=== PATIENT | male | born 1970 | race Caucasian/White ===

== ENCOUNTER 2016-09-18 13:29 | Emergency (ER) | payer OTHER ==
--- NOTE | 2016-09-18 14:16 | ED CLINICAL REPORT ---
Clinical Report - Physicians/Mid Levels [facility] [address] [place] [place] [address] 09/18/2016 13:34 Patient: MELINDA BRYANT SR Time Seen: 13:50; initial patient contact, initial documentation, patient care assumed. Arrived- By private vehicle. Historian- patient and spouse. HISTORY OF PRESENT ILLNESS Chief Complaint: HEADACHE. Is still present. This started about 1 weeks ago. It was abrupt in onset and has been constant. It is described as similar to previous headaches, "pain", throbbing and sharp. Located in the region of the right eye and left eye and facial region and has had neck pain. At its maximum, severity described as severe. When seen in the E.D., severity described as severe. Modifying factors: worsened by bright light; relieved by nothing. The patient has had photophobia, nausea and vomiting. The vomiting has occurred only once. No preceding symptoms, blurred vision, numbness or weakness. No recent travel. Similar symptoms previously: Chronically, as bad. Recent medical care: Not recently seen/assessed. REVIEW OF SYSTEMS No fever, sinus pressure, ear pain, sore throat or head injury. No chest pain, difficulty breathing, cough or abdominal pain. All systems otherwise negative, except as recorded above. PAST HISTORY See nurses notes. PROBLEMS: Headache. --13:53 Oz Zhang R.N. ADDITIONAL SURGERIES: Cholecystectomy. --13:53 Oz Zhang R.N. SOCIAL HISTORY Never smoker. No alcohol use or drug use. No recent travel. Is a local resident. He lives with spouse. FAMILY HISTORY Negative. ADDITIONAL NOTES The nursing notes have been reviewed with agreement regarding the chief complaint, HPI, ROS, PMH and patient medications and allergies. PHYSICAL EXAM Vital Signs: 09/18/2016 13:50 BP: 120/65. HR: 84. RR: 20. O2 saturation: 96%. Temp: 97.8 F. Pain level now: 5/10. Have been reviewed as normal and appear to be correct. Appearance: Alert. No acute distress. Eyes: Pupils equal, round and reactive to light. Eyes normal inspection. ENT: Ears normal. Nose normal. Pharynx normal. Neck: Normal inspection. Neck supple. CVS: Normal heart rate and rhythm. Heart sounds normal. Pulses normal. Respiratory: No respiratory distress. Breath sounds normal. Abdomen: Soft and nontender. No organomegaly. Severely obese. Back: Normal inspection. Skin: Skin warm and dry. Normal skin color. No rash. Normal skin turgor. Extremities: Extremities exhibit normal ROM. No lower extremity edema. Neuro: Oriented X 3. Alert. Mood/affect normal. Speech normal. Cranial nerves normal (as tested). No cerebellar findings. No motor deficit. No sensory deficit. PROGRESS AND PROCEDURES Patient and spouse counseled in person regarding the patient's stable condition and diagnosis. Differential Diagnosis: I considered migraine, cluster headache, ischemic stroke, subarachnoid hemorrhage, intracranial bleed, vascular malformation, cerebral aneurysm, vascular dissection, vasculitis, temporal arteritis, encephalitis, brain abscess, sinusitis, influenza, viral syndrome, carbon monoxide exposure, analgesic abuse and hypoglycemia as a possible cause of headache in this patient. This is a partial list of diagnoses considered. Above considerations are based on history and physical exam. Differential diagnosis was discussed with patient and patient's spouse. Disposition: Discharged home in good and improved condition (14:16). Condition: good and stable. CLINICAL IMPRESSION Acute, poorly controlled periodic headache syndrome. INSTRUCTIONS Warnings: GENERAL WARNINGS: Return or contact your physician immediately if your condition worsens or changes unexpectedly, if not improving as expected, or if other problems arise. SPECIFICALLY, return if you develop fever, vomiting, numbness, weakness, difficulty thinking, visual disturbances, fainting or extreme fatigue. Prescription Medications: Zofran 4 mg: Take 1 orally every six hours as needed for nausea/vomiting. Dispense ten (10). No refills. Substitution is permissible. Fioricet: Take 1-2 orally every 4 hours as needed for headache. Dispense twenty (20). No refills. Substitution is permissible. Follow-up: Follow up with your doctor in about three days as needed. Call for an appointment. Summary of care provided to patient. Understanding of the discharge instructions verbalized by patient. (Electronically signed by Afsaneh Ac A.R.N.P. 09/18/2016 17:46)
--- NOTE | 2016-09-18 14:16 | ED NURSING NOTES ---
Clinical Report - Nurses [facility] [address] [place] [address] [place] [address] 09/18/2016 13:34 Patient: MELINDA BRYANT SR TRIAGE Triage time 13:50 Sep 18 2016. Acuity: LEVEL 4. Chief Complaint: HEADACHE. Alert. No acute distress. MIKAYLA COMA SCORE: Mikayla Coma Scale: 15- eyes open spontaneously (4); best verbal response- oriented x 4 (5); best motor response- obeys commands (6). --13:59 Oz Zhang R.N. 13:50 09/18/16. BP: 120/65. HR: 84. RR: 20. O2 saturation: 96% on room air. Temp: 97.8 F. Pain level now: 07/14. --13:59 Oz Zhang R.N. Weight: 163.2 kg stated. Height/Length: 73 inches Per Patient. BMI: 47.5. --13:50 Oz Zhang R.N. Medications Indomethacin 25 mg PO PRN. --13:52 Oz Zahng R.N. Aleve Oral. --13:53 Oz Zhang R.N. Allergies No Known Drug Allergy. --13:53 Oz Zhang R.N. History Arrived by private vehicle. Historian: patient. Accompanied by family. Primary physician (Camila Saleem @ [place]). This started 1 week ago. ( Pt has had a headache for 1 week; it has gotten progressively worse. Pt has been diagnosed with activity induced headaches, usually his headaches improve when he takes the Indomethacin appropriately but this REILLY has not responded to the medication. He presents today in acute discomfort, pain reported behind his eyes.). He has had nausea, vomiting and weakness. No fever. Treatment COGNOS ADMINISTRATOR: (Indomethacin). PAST MEDICAL HX: Headaches. Head injury: (as a child). Immunizations: up-to-date. SOCIAL HX: Never smoker. Occasional alcohol use. History of drug use: marijuana. No recent travel. No infectious disease exposure. ABUSE ASSESSMENT: No report of abuse. SELF HARM ASSESSMENT: A self harm assessment was performed. The patient answered "no" to the question "Do you have thoughts of harming or killing yourself?". FALL RISK ASSESSMENT: Fall risk assessment completed. No fall risk identified. NUTRITIONAL RISK ASSESSMENT: The nutritional risk assessment revealed no deficiencies. FUNCTIONAL ASSESSMENT: Functional assessment: no impairments noted. LEARNING NEEDS ASSESSMENT: The learning needs assessment revealed no barriers. SKIN INTEGRITY ASSESSMENT: Skin integrity risk assessment completed. No skin integrity risk identified. --13:59 Oz Zhang R.N. PROBLEMS: Headache. --13:53 Oz Zhang R.N. ADDITIONAL SURGERIES: Cholecystectomy. --13:53 Oz Zhang R.N. Interventions ID band on patient. To treatment room. --13:59 Oz Zhang R.N. PHYSICAL ASSESSMENT Ambulatory to room. GENERAL / NEURO / PSYCH: Alert. Oriented X 4. Appears in no acute distress. Speech within normal limits. HEENT: No facial asymmetry noted. Pupils equal, round and reactive to light. RESPIRATORY: Respirations not labored. CVS: Capillary refill less than 2 seconds. GI / : Abdomen soft and nontender. ( Pt reports bloating, explosive diarrhea). SKIN: Skin is warm and dry. --14:01 Oz Zhang R.N. HEENT: ( Pt reporting neck pain to the L side.). --14:02 Oz Zhang R.N. NURSING PROGRESS NOTES The plan of care for this patient has been created. Monitoring of patient in place. Head of bed elevated. Reassurance given. Lights dimmed. Two patient identifiers checked. Call light placed in reach. Side rails up x 2. Bed placed in lowest position. Brakes of chair on. Patient ready for evaluation- notification provided. --14:02 Oz Zhang R.N. 14:22 09/18/2016 Reglan (Metoclopramide HCl) IM 10 mg given. Given in the right ventral gluteus. Allergies verified and confirmed 5 rights. --14:27 Oz Zhang R.N. 14:27 09/18/2016 Toradol (Ketorolac Tromethamine) IM 60 mg given. Given in the left ventral gluteus. Allergies verified and confirmed 5 rights. --14:27 Oz Zhang R.N. 14:30 09/18/2016 Benadryl (DiphenhydrAMINE HCl) IM 50 mg given. Given in the right deltoid. Allergies verified, confirmed 5 rights and sedative warning given to the patient and patient's family. --14:30 Oz Zhang R.N. ( Pt reports pain is the same, nausea is present, medicated Pt according to orders, Pt tolerated well, family at bedside.). --14:34 Oz Zhang R.N. 14:51 09/18/2016 Reglan IM Response: no adverse reaction. --14:51 Oz Zhang R.N. 14:51 09/18/2016 Toradol IM Response: no adverse reaction. --14:51 Oz Zhang R.N. 14:51 09/18/2016 Benadryl IM Response: no adverse reaction. --14:51 Oz Zhang R.N. DISPOSITION / DISCHARGE 14:42 09/18/16. BP: 110/54. HR: 76. RR: 16. O2 saturation: 96% on room air. Temp: deferred. Pain level now: 07/14. --14:42 Oz Zhang R.N. Departure time: 14:Sep 18 2016. Condition at departure: improved and stable. The goals identified in the patient's plan of care were met. No learning barriers present. Discharge instructions provided and reviewed with the patient and spouse. Reviewed warnings (Pt instructed not to drive while taking Fioricet). Reviewed medication(s) side effects, precautions, dosing and course information. Prescription(s) given to the business services sales representative (Rx for Fioricet and Zofran). Reviewed referral to a primary care physician for followup. Patient and spouse verbalized understanding. Written instructions provided in [place]ralt[place]. The patient was discharged home and accompanied by spouse. He left the Emergency Department ambulatory and via private vehicle. Spouse driving. --14:51 Oz Zhang R.N. Locked/Released at 09/18/2016 17:03 by Oz Zhang R.N.
--- NOTE | 2016-09-18 14:16 | ED NURSING NOTES ---
Clinical Report - Nurses [facility] [place] [address] 09/18/2016 13:34 Patient: MELINDA BRYANT SR TRIAGE Triage time 13:50 Sep 18 2016. Acuity: LEVEL 4. Chief Complaint: HEADACHE. Alert. No acute distress. MIKAYLA COMA SCORE: Mikayla Coma Scale: 15- eyes open spontaneously (4); best verbal response- oriented x 4 (5); best motor response- obeys commands (6). --13:59 Oz Zhang R.N. 13:50 09/18/16. BP: 120/65. HR: 84. RR: 20. O2 saturation: 96% on room air. Temp: 97.8 F. Pain level now: 07/14. --13:59 Oz Zhang R.N. Weight: 163.2 kg stated. Height/Length: 73 inches Per Patient. BMI: 47.5. --13:50 Oz Zhang R.N. Medications Indomethacin 25 mg PO PRN. --13:52 Oz Zhang R.N. Aleve Oral. --13:53 Oz Zhang R.N. Allergies No Known Drug Allergy. --13:53 Oz Zhang R.N. History Arrived by private vehicle. Historian: patient. Accompanied by family. Primary physician (Camila Saleem @ [place]). This started 1 week ago. ( Pt has had a headache for 1 week; it has gotten progressively worse. Pt has been diagnosed with activity induced headaches, usually his headaches improve when he takes the Indomethacin appropriately but this REILLY has not responded to the medication. He presents today in acute discomfort, pain reported behind his eyes.). He has had nausea, vomiting and weakness. No fever. Treatment UNCRATER: (Indomethacin). PAST MEDICAL HX: Headaches. Head injury: (as a child). Immunizations: up-to-date. SOCIAL HX: Never smoker. Occasional alcohol use. History of drug use: marijuana. No recent travel. No infectious disease exposure. ABUSE ASSESSMENT: No report of abuse. SELF HARM ASSESSMENT: A self harm assessment was performed. The patient answered "no" to the question "Do you have thoughts of harming or killing yourself?". FALL RISK ASSESSMENT: Fall risk assessment completed. No fall risk identified. NUTRITIONAL RISK ASSESSMENT: The nutritional risk assessment revealed no deficiencies. FUNCTIONAL ASSESSMENT: Functional assessment: no impairments noted. LEARNING NEEDS ASSESSMENT: The learning needs assessment revealed no barriers. SKIN INTEGRITY ASSESSMENT: Skin integrity risk assessment completed. No skin integrity risk identified. --13:59 Oz Zhang R.N. PROBLEMS: Headache. --13:53 Oz Zhang R.N. ADDITIONAL SURGERIES: Cholecystectomy. --13:53 Oz Zhang R.N. Interventions ID band on patient. To treatment room. --13:59 Oz Zhang R.N. PHYSICAL ASSESSMENT Ambulatory to room. GENERAL / NEURO / PSYCH: Alert. Oriented X 4. Appears in no acute distress. Speech within normal limits. HEENT: No facial asymmetry noted. Pupils equal, round and reactive to light. RESPIRATORY: Respirations not labored. CVS: Capillary refill less than 2 seconds. GI / : Abdomen soft and nontender. ( Pt reports bloating, explosive diarrhea). SKIN: Skin is warm and dry. --14:01 Oz Zhang R.N. HEENT: ( Pt reporting neck pain to the L side.). --14:02 Oz Zhang R.N. NURSING PROGRESS NOTES The plan of care for this patient has been created. Monitoring of patient in place. Head of bed elevated. Reassurance given. Lights dimmed. Two patient identifiers checked. Call light placed in reach. Side rails up x 2. Bed placed in lowest position. Brakes of chair on. Patient ready for evaluation- notification provided. --14:02 Oz Zhang R.N. 14:22 09/18/2016 Reglan (Metoclopramide HCl) IM 10 mg given. Given in the right ventral gluteus. Allergies verified and confirmed 5 rights. --14:27 Oz Zhang R.N. 14:27 09/18/2016 Toradol (Ketorolac Tromethamine) IM 60 mg given. Given in the left ventral gluteus. Allergies verified and confirmed 5 rights. --14:27 Oz Zhang R.N. 14:30 09/18/2016 Benadryl (DiphenhydrAMINE HCl) IM 50 mg given. Given in the right deltoid. Allergies verified, confirmed 5 rights and sedative warning given to the patient and patient's family. --14:30 Oz Zhang R.N. ( Pt reports pain is the same, nausea is present, medicated Pt according to orders, Pt tolerated well, family at bedside.). --14:34 Oz Zhang R.N. 14:51 09/18/2016 Reglan IM Response: no adverse reaction. --14:51 Oz Zhang R.N. 14:51 09/18/2016 Toradol IM Response: no adverse reaction. --14:51 Oz Zhang R.N. 14:51 09/18/2016 Benadryl IM Response: no adverse reaction. --14:51 Oz Zhang R.N. DISPOSITION / DISCHARGE 14:42 09/18/16. BP: 110/54. HR: 76. RR: 16. O2 saturation: 96% on room air. Temp: deferred. Pain level now: 07/14. --14:42 Oz Zhang R.N. Departure time: 14:Sep 18 2016. Condition at departure: improved and stable. The goals identified in the patient's plan of care were met. No learning barriers present. Discharge instructions provided and reviewed with the patient and spouse. Reviewed warnings (Pt instructed not to drive while taking Fioricet). Reviewed medication(s) side effects, precautions, dosing and course information. Prescription(s) given to the division field inspector (Rx for Fioricet and Zofran). Reviewed referral to a primary care physician for followup. Patient and spouse verbalized understanding. Written instructions provided in [employer]eless. The patient was discharged home and accompanied by spouse. He left the Emergency Department ambulatory and via private vehicle. Spouse driving. --14:51 Oz Zhang R.N. Locked/Released at 09/18/2016 17:03 by Oz Zhang R.N.
--- NOTE | 2016-09-18 14:16 | ED ORDER SUMMARY ---
..... Patient: MELINDA BRYANT SR OrderSheet [facility] VisitID: [id number] [address] [place] [address] 46y, M Registration Date/Time: 09/18/2016 ORDER SHEET Weight: 163.2 kg (stated) Allergies: No Known Drug Allergy GENERAL ORDERS: MEDICATION ORDERS: Toradol IM 60 mg (NOW) (14:16 09/18/2016 HBivens A.R.N.P.) (14:27 MCook R.N.) Benadryl IM 50 mg (NOW) (14:16 09/18/2016 HBivens A.R.N.P.) (14:30 MCook R.N.) - (Reglan 10mg im stat) (14:16 09/18/2016 HBivens A.R.N.P.) (14:27 MCook R.N.) IV FLUIDS: ORDER SHEET NOTES: [Electronically signed by Oz Zhang R.N. (17:03 09/18/2016)] [Electronically signed by Afsaneh AcR.N.PFili (17:46 09/18/2016)] [Electronically locked/signed by Oz Zhang R.N. (17:03 09/18/2016)]
--- NOTE | 2016-09-18 14:16 | ED ORDER SUMMARY ---
..... Patient: MELINDA BRYANT SR OrderSheet [facility] VisitID: [id number] [address] [place] [address] 46y, M Registration Date/Time: 09/18/2016 ORDER SHEET Weight: 163.2 kg (stated) Allergies: No Known Drug Allergy GENERAL ORDERS: MEDICATION ORDERS: Toradol IM 60 mg (NOW) (14:16 09/18/2016 HBivens A.R.N.P.) (14:27 MCook R.N.) Benadryl IM 50 mg (NOW) (14:16 09/18/2016 HBivens A.R.N.P.) (14:30 MCook R.N.) - (Reglan 10mg im stat) (14:16 09/18/2016 HBivens A.R.N.P.) (14:27 MCook R.N.) IV FLUIDS: ORDER SHEET NOTES: [Electronically signed by Oz Zhang R.N. (17:03 09/18/2016)] [Electronically signed by Afsaneh AcR.N.PFili (17:46 09/18/2016)] [Electronically locked/signed by Oz Zhang R.N. (17:03 09/18/2016)]
--- NOTE | 2016-09-18 17:46 | ED MAR SUMMARY ---
..... Medication Administration Record [facility] [address] [place] [address] Patient: MELINDA BRYANT Visit ID: [id number] 46y, M Weight: 163.2 kg Height/Length: 73 in BMI: 47.5 ALLERGIES: No Known Drug Allergy Given 14:22 09/18/2016 Oz Zhang R.N. Medication Administered: REGLAN [IM] (METOCLOPRAMIDE HCL), Dose: 10 mg IM. Medication Ordered: - (Reglan 10mg im stat). Given 14:09/18/2016 Oz Zhang R.N. Medication Administered: TORADOL [IM] (KETOROLAC TROMETHAMINE), Dose: 60 mg IM. Medication Ordered: Toradol IM 60 mg (NOW). Given 14:30 09/18/2016 Oz Zhang R.N. Medication Administered: BENADRYL [IM] (DIPHENHYDRAMINE HCL), Dose: 50 mg IM. Medication Ordered: Benadryl IM 50 mg (NOW).
--- NOTE | 2016-09-18 17:46 | ED MAR SUMMARY ---
..... Medication Administration Record [facility] [address] [place] [address] Patient: MELINDA BRYANT Visit ID: [id number] 46y, M Weight: 163.2 kg Height/Length: 73 in BMI: 47.5 ALLERGIES: No Known Drug Allergy Given 14:22 09/18/2016 Oz Zhang R.N. Medication Administered: REGLAN [IM] (METOCLOPRAMIDE HCL), Dose: 10 mg IM. Medication Ordered: - (Reglan 10mg im stat). Given 14:09/18/2016 Oz Zhang R.N. Medication Administered: TORADOL [IM] (KETOROLAC TROMETHAMINE), Dose: 60 mg IM. Medication Ordered: Toradol IM 60 mg (NOW). Given 14:30 09/18/2016 Oz Zhang R.N. Medication Administered: BENADRYL [IM] (DIPHENHYDRAMINE HCL), Dose: 50 mg IM. Medication Ordered: Benadryl IM 50 mg (NOW).
--- NOTE | 2016-09-18 17:46 | ED MED RECONCILIATION SUMMARY ---
Patient: MELINDA BRYANT SR Medication Reconciliation Report [facility] VisitID: [id number] [address] [place] [place] [address] 46y, M Registration Date/Time: 09/18/2016 Weight: 163.2 kg Height/Length: 73 in. BMI: 47.5 ALLERGIES: No Known Drug Allergy The patient's Home Medications are listed below: THE FOLLOWING MEDICATIONS NEED TO BE RECONCILED: Aleve Oral Indomethacin 25 mg PO PRN The source(s) of the original Home Medication information: Not obtained. The following Medications were given to the patient in the Emergency Department: Reglan [IM] IM 10 mg, administered: 09/18/2016 2:22:00 PM Toradol [IM] IM 60 mg, administered: 09/18/2016 2:27:00 PM Benadryl [IM] IM 50 mg, administered: 09/18/2016 2:30:00 PM The following Medications were prescribed to the patient: Zofran 4 mg: Take 1 orally every six hours as needed for nausea/vomiting. Dispense ten (10). No refills. Substitution is permissible. -- Afsaneh Ac, A.R.N.P. Fioricet: Take 1-2 orally every 4 hours as needed for headache. Dispense twenty (20). No refills. Substitution is permissible. -- Afsaneh Ac A.R.N.P.
--- NOTE | 2016-09-18 17:46 | ED DISCHARGE INSTRUCTIONS ---
Patient: MELINDA BRYANT SR General Instructions [facility] VisitID: [id number] [place] [address] 46y, M Registration Date/Time: 09/18/2016 Acute, poorly controlled periodic headache syndrome. INSTRUCTIONS Warnings: GENERAL WARNINGS: Return or contact your physician immediately if your condition worsens or changes unexpectedly, if not improving as expected, or if other problems arise. SPECIFICALLY, return if you develop fever, vomiting, numbness, weakness, difficulty thinking, visual disturbances, fainting or extreme fatigue. Prescription Medications: Zofran 4 mg: Take 1 orally every six hours as needed for nausea/vomiting. Dispense ten (10). No refills. Substitution is permissible. Fioricet: Take 1-2 orally every 4 hours as needed for headache. Dispense twenty (20). No refills. Substitution is permissible. Follow-up: Follow up with your doctor in about three days as needed. Call for an appointment. Summary of care provided to patient. Understanding of the discharge instructions verbalized by patient. ADDITIONAL INFORMATION Headache [Unspecified] The cause of your headache today is not clear, but it does not appear to be the sign of any serious illness. Under stress, some people tense the muscles of their shoulder, neck and scalp without knowing it. If this condition lasts long enough, a TENSION HEADACHE can occur. A MIGRAINE HEADACHE is caused by changes in blood flow to the brain. A migraine attack may be triggered by emotional stress, hormone changes during the menstrual cycle, oral contraceptives, alcohol use, certain foods containing tyramine, eye strain, weather changes, missing meals, lack of sleep or oversleeping. Other causes of headache include a viral illness with high fever, head injury with concussion, sinus, ear or throat infection, dental pain and TMJ (jaw joint) pain. More serious but less common causes of headache include stroke, brain hemorrhage, brain tumor, meningitis and encephalitis. Home Care: If you were given pain medicine for this headache, do not drive yourself home. Arrange for a ride, instead. When you get home, try to sleep. You should feel much better when you wake up. Apply heat to the back of your neck to relieve neck muscle spasm. Migraine headaches may respond best to an ice pack on the forehead or at the base of the skull. If you are having nausea or vomiting, follow a light diet until your headache is relieved. If you have a migraine type headache, use sunglasses when in the daylight or around bright indoor lighting until symptoms improve. Bright glaring light can worsen this kind of headache. Follow Up with your doctor if the headache is not better within the next 24 hours. If you have frequent headaches you should discuss a treatment plan with your primary care doctor. By being aware of the earliest signs of headache, and starting treatment right away, you may be able to stop the pain yourself. Get Prompt Medical Attention if any of the following occur: Worsening of your head pain or no improvement within 24 hours Repeated vomiting (unable to keep liquids down) Fever of 100.4F (38C) or higher, or as directed by your healthcare provider Stiff neck Extreme drowsiness, confusion or fainting Dizziness, vertigo (dizziness with spinning sensation) Weakness of an arm or leg or one side of the face Difficulty with speech or vision Ondansetron Oral disintegrating tablet What is this medicine? ONDANSETRON (on IVETH se alvarado) is used to treat nausea and vomiting caused by chemotherapy. It is also used to prevent or treat nausea and vomiting after surgery. How should I use this medicine? These tablets are made to dissolve in the mouth. Do not try to push the tablet through the foil backing. With dry hands, peel away the foil backing and gently remove the tablet. Place the tablet in the mouth and allow it to dissolve, then swallow. While you may take these tablets with water, it is not necessary to do so. Talk to your government sales manager regarding the use of this medicine in children. Special care may be needed. What side effects may I notice from receiving this medicine? Side effects that you should report to your doctor or health healthcare account manager as soon as possible: allergic reactions like skin rash, itching or hives, swelling of the face, lips, or tongue breathing problems dizziness fast or irregular heartbeat feeling faint or lightheaded, falls fever and chills swelling of the hands and feet tightness in the chest Side effects that usually do not require medical attention (report to your doctor or health healthcare account manager if they continue or are bothersome): constipation or diarrhea headache What may interact with this medicine? Do not take this medicine with any of the following medications: -apomorphine -cisapride -dofetilide -dronedarone -pimozide -thioridazine -ziprasidone This medicine may also interact with the following medications: -carbamazepine -phenytoin -rifampicin -tramadol -other medicines that prolong the QT interval (cause an abnormal heart rhythm) What if I miss a dose? If you miss a dose, take it as soon as you can. If it is almost time for your next dose, take only that dose. Do not take double or extra doses. Where should I keep my medicine? Keep out of the reach of children. Store between 2 and 30 degrees C (36 and 86 degrees F). Throw away any unused medicine after the expiration date. What should I tell my health care provider before I take this medicine? They need to know if you have any of these conditions: heart disease history of irregular heartbeat liver disease low levels of magnesium or potassium in the blood an unusual or allergic reaction to ondansetron, granisetron, other medicines, foods, dyes, or preservatives or trying to get breast-feeding What should I watch for while using this medicine? Check with your doctor or health healthcare account manager as soon as you can if you have any sign of an allergic reaction. Butalbital, Acetaminophen, Caffeine Oral tablet What is this medicine? ACETAMINOPHEN; BUTALBITAL; CAFFEINE (a set a BRENDA jazmyne fen; byoo CARLOS A bi carlos a; KAF een) is a pain reliever. It is used to treat tension headaches. How should I use this medicine? Take this medicine by mouth with a full glass of water. Follow the directions on the prescription label. If the medicine upsets your stomach, take the medicine with food or milk. Do not take more than you are told to take. Talk to your government sales manager regarding the use of this medicine in children. Special care may be needed. What side effects may I notice from receiving this medicine? Side effects that you should report to your doctor or health healthcare account manager as soon as possible: allergic reactions like skin rash, itching or hives, swelling of the face, lips, or tongue breathing problems confusion feeling faint or lightheaded, falls redness, blistering, peeling or loosening of the skin, including inside the mouth seizure stomach pain yellowing of the eyes or skin Side effects that usually do not require medical attention (report to your doctor or health healthcare account manager if they continue or are bothersome): constipation nausea, vomiting What may interact with this medicine? alcohol or medicines that contain alcohol antidepressants, especially MAOIs like isocarboxazid, phenelzine, tranylcypromine, and selegiline antihistamines benzodiazepines carbamazepine isoniazid medicines for pain like pentazocine, buprenorphine, butorphanol, nalbuphine, tramadol, and propoxyphene muscle relaxants naltrexone phenobarbital, phenytoin, and fosphenytoin phenothiazines like perphenazine, thioridazine, chlorpromazine, mesoridazine, fluphenazine, prochlorperazine, promazine, and trifluoperazine voriconazole What if I miss a dose? If you miss a dose, take it as soon as you can. If it is almost time for your next dose, take only that dose. Do not take double or extra doses. Where should I keep my medicine? Keep out of the reach of children. This medicine can be abused. Keep your medicine in a safe place to protect it from theft. Do not share this medicine with anyone. Selling or giving away this medicine is dangerous and against the law. Store at room temperature between 15 and 30 degrees C (59 and 86 degrees F). Keep container tightly closed. Protect from light. Throw away any unused medicine after the expiration date. What should I tell my health care provider before I take this medicine? They need to know if you have any of these conditions: drink more than 3 alcohol-containing drinks per day drug abuse or addiction heart or circulation problems kidney disease or problems going to the bathroom liver disease lung disease, asthma, or breathing problems porphyria an unusual or allergic reaction to acetaminophen, butalbital or other barbiturates, caffeine, other medicines, foods, dyes, or preservatives or trying to get breast-feeding What should I watch for while using this medicine? Tell your doctor or health healthcare account manager if your pain does not go away, if it gets worse, or if you have new or a different type of pain. You may develop tolerance to the medicine. Tolerance means that you will need a higher dose of the medicine for pain relief. Tolerance is normal and is expected if you take the medicine for a long time. Do not suddenly stop taking your medicine because you may develop a severe reaction. Your body becomes used to the medicine. This does NOT mean you are addicted. Addiction is a behavior related to getting and using a drug for a non-medical reason. If you have pain, you have a medical reason to take pain medicine. Your doctor will tell you how much medicine to take. If your doctor wants you to stop the medicine, the dose will be slowly lowered over time to avoid any side effects. You may get drowsy or dizzy when you first start taking the medicine or change doses. Do not drive, use machinery, or do anything that may be dangerous until you know how the medicine affects you. Stand or sit up slowly. Do not take other medicines that contain acetaminophen with this medicine. Always read labels carefully. If you have questions, ask your doctor or pharmacist. If you take too much acetaminophen get medical help right away. Too much acetaminophen can be very dangerous and cause liver damage. Even if you do not have symptoms, it is important to get help right away. You have been given the following additional information: Headache, Unspecified Ondansetron Oral disintegrating tablet Butalbital, Acetaminophen, Caffeine Oral tablet (Electronically signed by Afsaneh Ac A.R.N.P. 09/18/2016 17:46)
--- NOTE | 2016-09-18 17:46 | ED MED RECONCILIATION SUMMARY ---
Patient: MELINDA BRYANT SR Medication Reconciliation Report [facility] VisitID: [id number] [place] [address] 46y, M Registration Date/Time: 09/18/2016 Weight: 163.2 kg Height/Length: 73 in. BMI: 47.5 ALLERGIES: No Known Drug Allergy The patient's Home Medications are listed below: THE FOLLOWING MEDICATIONS NEED TO BE RECONCILED: Aleve Oral Indomethacin 25 mg PO PRN The source(s) of the original Home Medication information: Not obtained. The following Medications were given to the patient in the Emergency Department: Reglan [IM] IM 10 mg, administered: 09/18/2016 2:22:00 PM Toradol [IM] IM 60 mg, administered: 09/18/2016 2:27:00 PM Benadryl [IM] IM 50 mg, administered: 09/18/2016 2:30:00 PM The following Medications were prescribed to the patient: Zofran 4 mg: Take 1 orally every six hours as needed for nausea/vomiting. Dispense ten (10). No refills. Substitution is permissible. -- Afsaneh Ac, A.R.N.P. Fioricet: Take 1-2 orally every 4 hours as needed for headache. Dispense twenty (20). No refills. Substitution is permissible. -- Afsaneh Ac A.R.N.P.
== END 2016-09-18 14:47 | disposition home or self-care (01) ==
LOC: ED SRH 13:29
DX: G43.C1 Periodic headache syndromes in child or adult, intractable (principal)